=== PATIENT | male | born 1975 | race Caucasian/White ===

== ENCOUNTER 2020-06-10 15:23 | Emergency (ER) | payer OTHER ==
[~2020-06-10 15:23] MED LIST: MOTRIN600 MG PO
== END 2020-06-10 19:45 | disposition home or self-care (01) ==
LOC: FER 15:23
DX: B07.9 Viral wart, unspecified (principal); F17.210 Nicotine dependence, cigarettes, uncomplicated
CPT/HCPCS: 99282

== ENCOUNTER 2020-07-02 06:57 | Emergency (ER) | payer OTHER ==
[2020-07-02 07:17] LABS: EOSINOPHIL 3.9 % (0-5); HGB 17.8 g/dl (13.2-18.0); MCHC 33.6 g/dL (32.0-36.0); MCV 92.2 fL (78.0-100.0); MONOCYTE 7.3 % (0-12); MPV 10.3 fL (6.0-9.5); NEUTROPHIL 59.5 % (41-80); NRBC 0; PLT 221 K/uL (150-400); RBC 5.75 M/uL (4.70-6.00); RDW 12.9 % (11.5-14.0); WBC 11.1 K/uL (4.0-10.5)
[2020-07-02 07:34] LABS: BILIRUBIN - TOTAL 0.4 mg/dL (0.2-1.0); BUN/CREAT RATIO (CALC) 15.1 RATIO; CREATININE 0.93 mg/dL (0.67-1.17); GLOBULIN (CALCULATION) 3.8 g/dL; POTASSIUM 3.8 mmol/L (3.5-5.1); TOTAL PROTEIN 7.8 g/dL (6.4-8.2)
[2020-07-02] MEDS ORDERED: AZITHROMYCIN250 MG PO (07:46)
[2020-07-02] MEDS ORDERED: MEDROL 4MG DOSEP4 MG PO (07:46)
[2020-07-02] MEDS ORDERED: VENTOLIN HFA18 GM INH (07:46)
== END 2020-07-02 16:30 | disposition home or self-care (01) ==
LOC: FER 06:57
PROVIDERS: Emergency Medicine
DX: J40 Bronchitis, not specified as acute or chronic (principal); R09.1 Pleurisy; I45.10 Unspecified right bundle-branch block; F17.200 Nicotine dependence, unspecified, uncomplicated
CPT/HCPCS: 36415; 71046; 80053; 85025; 93005

== ENCOUNTER 2020-12-06 19:25 | Emergency (ER) | payer OTHER ==
[~2020-12-06 19:25] MED LIST changes: +AZITHROMYCIN250 MG PO; +MEDROL 4MG DOSEP4 MG PO; +VENTOLIN HFA18 GM INH
[2020-12-06] MEDS ORDERED: CEPHALEXIN500 MG PO (20:37)
[2020-12-06] MEDS ORDERED: DICLOFENAC SODI75 MG PO (20:37)
== END 2020-12-06 20:55 | disposition home or self-care (01) ==
LOC: FER 19:25
DX: S60.552A Superficial foreign body of left hand, initial encounter (principal); Z87.891 Personal history of nicotine dependence; W45.8XXA Other foreign body or object entering through skin, initial encounter; Y92.009 Unspecified place in unspecified non-institutional (private) residence as the place of occurrence of the external cause
CPT/HCPCS: 90471; 90715

== ENCOUNTER 2021-06-05 12:17 | Emergency (ER) | payer OTHER ==
[~2021-06-05 12:17] MED LIST changes: +CEPHALEXIN500 MG PO; +DICLOFENAC SODI75 MG PO
[2021-06-05 15:09] LABS: INFLUENZA A NAA NEGATIVE (NEGATIVE)
[2021-06-05 15:12] LABS: CORONAVIRUS 2019 SARS-COV-2 POSITIVE (NEGATIVE)
== END 2021-06-05 15:40 | disposition left against medical advice (07) ==
LOC: FER 12:17
PROVIDERS: Emergency Medicine
DX: U07.1 COVID-19 (principal); Z53.21 Procedure and treatment not carried out due to patient leaving prior to being seen by health care provider
CPT/HCPCS: 99281; U0002

== ENCOUNTER 2021-06-06 09:34 | Emergency (ER) | payer OTHER | END 2021-06-06 11:15 | disposition home or self-care (01) | LOC: FER 09:34 | DX: U07.1 COVID-19 (principal); F17.200 Nicotine dependence, unspecified, uncomplicated | CPT/HCPCS: 99283 ==